=== PATIENT | female | born 1980 | race Caucasian/White ===

== ENCOUNTER 2016-12-10 06:07 | Inpatient (IN) ==
[2016-12-10] MEDS ORDERED: CALCIUM CARBONATE Chewable 500mg TABLET PO PRN (06:12)
[2016-12-10] MEDS ORDERED: MAG-AL + SIM ORAL LIQUID 30ml PO PRN (06:12)
[2016-12-10] MEDS ORDERED: ACETAMINOPHEN 500 MG TABLET PO PRN (06:12)
[2016-12-10] MEDS ORDERED: METHYLERGONOVINE 0.2 MG/ML INJECTION IM PRN (06:12)
[2016-12-10] MEDS ORDERED: LIDOCAINE 1% (10mg/ml) 2mL INJ PF SDV ID PRN (06:12)
[2016-12-10] MEDS ORDERED: CARBOPROST 250 MCG/ML INJECTION IM PRN (06:12)
[2016-12-10] MEDS ORDERED: AMPICILLIN 2 GM in NS 100 ML IV SCH (06:30)
[2016-12-10] MEDS: LR 1,000 ML IV PRN ×3 (06:44→22:50)
[2016-12-10] MEDS: OXYTOCIN DRIP 30 UNIT/500 ML ML IV SCH (06:54)
[2016-12-10] MEDS: D5LR 1,000 ML IV SCH ×2 (06:56→16:29)
[2016-12-10 07:36] VITALS: BMI 39.8
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
[2016-12-10] MEDS: AMPICILLIN 1 GM in NS 100 ML IV SCH ×4 (10:47→22:50)
[2016-12-10] MEDS ORDERED: ONDANSETRON 4 MG/2 ML INJECTION IVP PRN (18:19)
[2016-12-10] MEDS ORDERED: DiphenhydrAMINE 50 MG/ML INJECTION IVP PRN (18:19)
[2016-12-10] MEDS ORDERED: NALOXONE 0.4 MG/ML INJECTION IVP PRN (18:19)
[2016-12-10] MEDS ORDERED: ROPIVACAINE 1% 10MG/ML INJ 200 MG, SUFentanil 50 MCG in NS 100 ML EPI PRN (18:19)
[2016-12-11] MEDS ORDERED: SODIUM BICARBONATE 8.4% (50mEq/50ml) VIAL IV ONE (00:48)
[2016-12-11] MEDS ORDERED: LIDOCAINE 2%/EPI 1:200,000 20ml SDV PF ONE (00:49)
[2016-12-11] MEDS ORDERED: CEFAZOLIN PREMIX (MC ONLY) 2 GM/50 ML BAG IV ONE (01:00)
[2016-12-11] MEDS: LR 1,000 ML IV PRN (01:20)
[2016-12-11] MEDS ORDERED: ONDANSETRON 4 MG/2 ML INJECTION ONE (01:30)
[2016-12-11] MEDS ORDERED: TRANEXAMIC ACID 1gm/NS 100ml IRR MIX IR ONE (01:30)
[2016-12-11] MEDS: OXYTOCIN DRIP 30 UNIT/500 ML ML IV SCH ×3 (01:40→04:46)
[2016-12-11] MEDS ORDERED: MORPHINE SULFATE PF 5mg/10ml INJ (Duramorph) ONE (01:44)
[2016-12-11] MEDS ORDERED: NALBUPHINE 10 MG/ML INJECTION IVP PRN (01:56)
[2016-12-11] MEDS ORDERED: DiphenhydrAMINE 50 MG/ML INJECTION IVP PRN (01:56)
[2016-12-11] MEDS ORDERED: NALOXONE 2 MG/2 ML INJECTION PFS IVP PRN (01:56)
[2016-12-11] MEDS ORDERED: ONDANSETRON 4 MG/2 ML INJECTION IVP PRN (01:56)
[2016-12-11] MEDS ORDERED: FAMOTIDINE PREMIX 20 MG/50 ML BAG IV ONE (02:07)
[2016-12-11] MEDS ORDERED: CITRIC ACID/SODIUM CITRATE 30ml PO ONE (02:07)
[2016-12-11] MEDS ORDERED: SALINE FLUSH 10ml SYRINGE IVF PRN (02:30)
[2016-12-11] MEDS ORDERED: SIMETHICONE 80 MG CHEWABLE TABLET PO PRN (02:30)
[2016-12-11] MEDS ORDERED: ACETAMINOPHEN 500 MG TABLET PO PRN (02:30)
[2016-12-11] MEDS ORDERED: DiphenhydrAMINE 25 MG CAPSULE PO PRN (02:30)
[2016-12-11] MEDS ORDERED: HYDROCODONE/APAP 5mg/325mg TABLET PO PRN (02:30)
[2016-12-11] MEDS ORDERED: CALCIUM CARBONATE Chewable 500mg TABLET PO PRN (02:30)
[2016-12-11] MEDS ORDERED: HYDROCORTISONE 2.5% CREAM 30gm RECTALLY PRN (02:30)
[2016-12-11] MEDS: D5LR 1,000 ML IV SCH ×2 (03:50→05:38)
[2016-12-11] MEDS: IBUPROFEN 800 MG TABLET PO PRN ×3 (04:43→22:02)
--- NOTE | 2016-12-11 09:05 | Operative Note ---
DATE 12/11/2016 PREOPERATIVE DIAGNOSIS Term , failed induction. POSTOPERATIVE DIAGNOSIS Term , failed induction - delivered. PROCEDURE Primary low transverse section. SURGEON Radha Bourne MD TEACHER RESOURCE Shiv Douglass MD ANESTHESIA Epidural - Devante Souza CRNA EBRubi 600 ml DESCRIPTION OF PROCEDURE Ms. Mcnair was brought to the OR and placed on the OR table in a supine position with left lateral displacement. Her epidural analgesia was brought up to adequate surgical levels. The abdomen was prepped and draped in the usual sterile fashion. A Zaidi catheter had previously been placed to dependent drain. A Pfannenstiel skin incision was made with a sharp knife. This was carried down to fascia. Fascia was incised transversely. Fascia was then tented up. This was bluntly and sharply dissected free of rectus muscles. Rectus muscles were bluntly divided. Peritoneum was tented up and sharply entered. This was extended vertically. The bladder blade was then inserted. The vesicouterine fold of peritoneum was tented up and incised transversely. A bladder flap was then bluntly created and bladder blade reinserted to protect the bladder. A low transverse uterine incision was made with a sharp knife. This was extended bluntly vertically. There was clear amniotic fluid. Baby was then delivered in the vertex JULIET presentation. Baby was bulb suctioned on the abdomen. Cord was doubly clamped and cut and the baby was given to Dr. Wong and her team for care. This was a liveborn male with Apgars of 8/9/9 and he weighed 8 pounds, 5.3 ounces. The placenta was then manually removed, intact. It had a normal configuration and a normal-appearing three-vessel cord. We exteriorized the uterus and then swept it clear of membranes. The myometrial incision was reapproximated with a running locking O Monocryl. There was a small extension on the left that was included in the closure. There was also a small area of bleeding on the anterior lower surface above the bladder. This was secured with a [id number] suture of 3-0 chromic. At this point hemostasis was under good control. Uterus, tubes and ovaries were noted to be grossly normal and were returned to the abdominal cavity. We reinspected for hemostasis. This remained under good control throughout the remainder of the procedure. Peritoneum was then reapproximated with a running nonlocking 2-0 Vicryl. Fascia was reapproximated with running nonlocking 0 Vicryl. Skin edges were reapproximated with a subcuticular style 3-0 undyed Vicryl. The wound was dressed with Steri-Strips and sterile dressing. Counts were correct postoperatively x 2. The urine remained clear and free-flowing throughout the procedure. Ms. Mcnair was then transferred to recovery in stable condition. LEORA
[2016-12-11] MEDS: DOCUSATE CALCIUM 240 MG CAPSULE PO SCH (10:44)
[2016-12-11] MEDS: SIMETHICONE 80 MG CHEWABLE TABLET PO SCH ×4 (10:44→22:01)
--- NOTE | 2016-12-11 13:08 | Anesthesia Postoperative Note ---
- Date and Time Date: 12/11/16 Time: 13:08 - Status Patient Participated in Evaluation: Patient Participated in Person Vital Signs: Temperature 98.0 F 12/11/16 10:06 Pulse Rate 83 12/11/16 10:06 Respiratory Rate 16 12/11/16 10:06 Blood Pressure 118/56 12/11/16 10:06 Pulse Oximetry 98 12/11/16 10:06 Oxygen Delivery Method Room Air Respiratory Function: Airway Patent Cardiovascular Function: Regular Pulse EKG Rhythm: Normal Sinus Rhythm Mental Status: Alert and Oriented Pain Intensity: 0 Hydration: Taking PO Fluids Complications During Recover: None Apparent - Follow-Up Instructions Instructions: Per Surgeon
--- NOTE | 2016-12-11 17:32 | Progress Note ---
OB PP Progress Note Free Text - Date Date: 12/11/16 - Progress Note Progress Note: No complaints. AVSS Cont routine care.
[2016-12-12] MEDS: IBUPROFEN 800 MG TABLET PO PRN ×2 (08:36→17:41)
[2016-12-12] MEDS: DOCUSATE CALCIUM 240 MG CAPSULE PO SCH (08:36)
[2016-12-12] MEDS: SIMETHICONE 80 MG CHEWABLE TABLET PO SCH ×2 (08:36→19:49)
--- NOTE | 2016-12-12 09:59 | OB/GYN Progress Note ---
OB-PP Progress Note - General PPD1 - Subjective Date: 12/12/16 Lochia: Minimal Pain: contolled Voiding: voiding Nausea or Vomiting Present: No - Objective Vital Signs: Last Vital Signs Temp 97.9 F 12/12/16 02:00 Pulse 74 12/12/16 02:00 Resp 14 12/12/16 02:00 BP 129/66 12/12/16 02:00 Pulse Ox 99 12/12/16 02:00 Urine Output: good General: alert and oriented Abdomen: fundus firm, non-tender Incision: dressed Extremities: non-tender - Assessment Assessment: SP, Primary C/S - Plan Plan: routine care Expected date of discharge: 12/13/16
[2016-12-12 10:42] VITALS: RESP 16
[2016-12-13] MEDS: SIMETHICONE 80 MG CHEWABLE TABLET PO SCH (00:34)
[2016-12-13] MEDS: IBUPROFEN 800 MG TABLET PO PRN (05:43)
[2016-12-13 06:00] VITALS: BP 127/70; PULSE 73; TEMP 98; O2SAT 98
[2016-12-13] MEDS: DOCUSATE CALCIUM 240 MG CAPSULE PO SCH (09:28)
--- NOTE | 2016-12-13 09:32 | OB/GYN Progress Note ---
OB-PP Progress Note - General PPD2 Maternal blood type: A+ Maternal Rubella Status: Immune - Subjective Date: 12/13/16 Lochia: Minimal Pain: contolled Voiding: voiding - Objective Vital Signs: Last Vital Signs Temp 98 F 12/13/16 05:00 Pulse 73 12/13/16 05:00 Resp 16 12/13/16 05:00 BP 127/70 12/13/16 05:00 Pulse Ox 98 12/13/16 05:00 Urine Output: good General: alert and oriented Abdomen: fundus firm, non-tender Incision: normal, intact - Assessment (1) Status post primary low transverse section Status: Acute - Plan Plan: routine care, discharge home, continue PNV
--- NOTE | 2016-12-13 09:35 | Discharge Instructions ---
Discharge Plan - Med Rec/Dispo Prescriptions: New Hydrocodone/APAP 5/325 [Hutchinson 5/325] 1 - 2 tab PO Q4H PRN #40 tablet PRN Reason: Pain Ibuprofen [Motrin] 800 mg PO Q8H PRN #30 tablet PRN Reason: Pain Continue Tylenol Pm Tylenol Ranitidine Triamcinolone Acetonide BID Vitamins Tums Discharge Instructions/Outpatient Orders: Final Provider Discharge Instructions Time Frame: 12/13/16, Location: Determined By Patient - Disposition 01 Discharged Home, Self-Care
== END 2016-12-13 10:48 | disposition home or self-care (01) | DRG 766 ==
LOC: MC 06:07
PROVIDERS: ADMIT Obstetrics & Gynecology; ATTEND Obstetrics & Gynecology